=== PATIENT | male | born 1980 | race Caucasian/White ===

== ENCOUNTER 2018-09-28 12:59 | Emergency (ER) | payer MEDICAID, SELFPAY ==
[2018-09-28 13:00] VITALS: BP 147/68; PULSE 87; RESP 16; TEMP 36.8; O2SAT 99; BMI 23.7
--- NOTE | 2018-09-28 13:29 | RAD_ITS ---
STUDY: X-RAY - MANDIBLE (COMPLETE) REASON FOR EXAM: Male, 38 years old. Pain along the right side of the mandible. No history of trauma. TECHNIQUE: 5 view(s) of the mandible were obtained. COMPARISON: None. FINDINGS: Normal mandible. Normal visualized right temporomandibular joint. Normal visualized left temporomandibular joint. The remaining visualized osseous structures are normal. The soft tissue structures are unremarkable. RAD/Mandible Min 4 Views IMPRESSION: Normal x-ray examination of the mandible. Electronically Signed: Gordon Lazaro, at 14:40 EDT , Service support ,
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
--- NOTE | 2018-09-28 15:19 | ED.DEP ---
ED Disposition - Plan for ED Patient: Disposition: Home or Assisted Living Instructions: ED TMJ Syndrome Prescriptions: Naproxen [Naprosyn] 500 mg PO BID PRN PRN #20 tablet PRN Reason: Pain Cyclobenzaprine [Flexeril] 10 mg PO TID PRN #20 tablet PRN Reason: Muscle Spasm Referrals: Gómez Mason DDS [STAFF PHYSICIAN] - 10-14 Days if not better
[2018-09-28] MEDS: Naproxen 500 MG Tablet PO (15:27)
[2018-09-28] MEDS: HYDROcodone Bitartrate/Apap 5/325 Tablet PO (15:27)
== END 2018-09-28 15:28 | disposition home or self-care (01) ==
PROVIDERS: Emergency Provider Emergency Medicine; Family Provider Family Medicine; PCP Family Medicine
DX: M26.621 Arthralgia of right temporomandibular joint (principal)
CPT/HCPCS: 70110; 99283

== ENCOUNTER 2023-03-13 09:08 | Emergency (ER) | payer MEDICAID, SELFPAY ==
[2023-03-13 09:09] VITALS: BP 142/84; PULSE 75; RESP 16; TEMP 36.3; O2SAT 100; BMI 24.3
--- NOTE | 2023-03-13 09:22 | CT_ITS ---
STUDY: CT SOFT TISSUE NECK WITH CONTRAST REASON FOR EXAM: Male, 42 years old. Right parapharyngeal pain RADIATION DOSAGE (If Supplied By Facility): CTDIvol = ( 15.35 ) mGy, DLP = ( 490.80 ) mGycm TECHNIQUE: The patient was scanned in a multi-detector CT scanner. High resolution transaxial imaging was performed following intravenous administration of IV 100mL Isovue-370. Sagittal and coronal images were reconstructed. Individualized dose optimization techniques were used for this CT. COMPARISON: None. FINDINGS: Normal bilateral parotid glands. Normal bilateral drug and alcohol counsellor spaces. Normal bilateral parapharyngeal spaces. Normal bilateral carotid spaces. Normal bilateral sublingual and submandibular glands and spaces. Normal visualized nasopharynx. Normal retropharyngeal space. Normal perivertebral space. Asymmetric soft tissue attenuation and possible 2 cm mass in the right side of the oropharynx and/or right lingual tonsil and clinical correlation is recommended. The visualized cervical lymph nodes (levels I-) are within normal size limits, and maintain normal morphology. There is no demonstrated solid or cystic mass lesion. There is no abnormal contrast enhancement. Normal epiglottis, bilateral vallecula and hypopharynx. The pre-epiglottic and paraglottic adipose spaces are normal. Normal visualized bilateral piriform sinuses, aryepiglottic folds, vocal cords, and arytenoid-cricoid articulations. Normal subglottic trachea. Normal bilateral lobes of the thyroid gland. Normal visualized pulmonary apices. Normal visualized paranasal sinuses. Normal visualized cervical spine. CT/Soft Tissue Neck WITH Contrast IMPRESSION: Asymmetry or mass of the right side of the oropharynx and possibly lingual tonsil and clinical correlation is recommended. Electronically Signed: Feroz De La Garza MD at 10:36 EDT ,
--- NOTE | 2023-03-13 09:25 | EDS_ITS ---
HPI History of Present Illness Chief Complaint: Sore Throat Informant: patient Narrative Narrative: Presents with right-sided sore throat. Patient is overall healthy. He states yesterday morning started to get a sore throat. Its really mostly on the right side. He states he is just getting more and more sore. It is hurting to swallow. He is still able to swallow and handle secretions. He is not short of breath. No change in his voice. He does not think he has had a fever. There is no trauma to the area. No weight loss or weight gain. No earache. No facial pain or congestion. No dental pain. Does not hurt opening closing the jaw. This does not appear to be TMJ. Nothing specifically makes this better or worse. He has not had this before. PFSH PFSH Home Medications multivitamin (Daily Multiple tablet) 1 ea PO DAILY 11/21/15 [History Last Taken Unknown] amoxicillin 500 mg tablet 500 mg PO TID #30 tabs 03/13/23 [Rx Last Taken Unknown] hydrocodone-acetaminophen 5-325mg 5mg-325mg 1 tab PO Q6H PRN PRN Pain 3 days #10 TABLETS 03/13/23 [Rx Last Taken Unknown] Allergy/AdvReac Type Severity Reaction Status Date / Time No Known Allergies Allergy Verified 03/13/23 09:09 Social History Smoking Status: Current every day smoker tobacco type: cigarettes ROS ROS ED Constitutional Constitutional ED: Denies chills or fever(s) Eyes Eyes: Denies change in vision or diplopia ENT ENT ED: Reports sore throat; Denies ear pain or rhinorrhea Cardiovascular Cardiovascular: Denies chest pain Respiratory/Chest Respiratory/Chest: Denies cough or dyspnea Gastrointestinal Gastrointestinal: Denies nausea or vomiting Musculoskeletal Musculoskeletal: Denies neck pain Integumentary Denies abscess, Abrasions or rash Neurologic Neurologic: Denies headache(s), paresthesias or weakness Endocrine Endocrinology: Denies polydipsia or polyuria Hematologic/Lymphatic Hematologic/Lymphatic: Denies anemia or easy bleeding Allergic/Immunologic Allergic/Immunologic ED: Denies urticaria EXAM Physical Exam Narrative Exam Narrative: Patient is awake alert sitting comfortably in the bed. No acute distress. He carries on normal conversation. HEENT: He has a small os mobile growth anterior to the right ear. But he has had that for 7 or 8 years unchanged. Tympanic membranes are clear. No TMJ tenderness on exam. No sinus tenderness. Nasal passages are clear. Oropharynx does show some erythema on the right. The tonsil on the right looks just slightly larger than the left. But is nowhere near midline at all. It is a very subtle difference. No exudate is seen on the portion of the tonsil that I can visualize. No thrush. Voice and handling secretions are normal. No dental tenderness noted. Neck shows no lymphadenopathy or fullness that I can appreciate. There is no asymmetry. Lungs are clear bilaterally. Heart is regular. No murmur. Peripheral pulses are normal. Abdomen is soft completely nontender. No hepatosplenomegaly noted. Extremities show no rash or swelling. Const Vital Signs: 03/13/23 09:09 Temperature 97.3 F L Temperature Source Temporal Pulse Rate 75 Respiratory Rate 16 Blood Pressure 142/84 H Blood Pressure Mean 103 Pulse Ox 100 Oxygen Delivery Method Room Air MDM MDM MDM Narrative Medical decision making narrative: Patient CBC is normal including white count hemoglobin and platelets. Patient's electrolytes show no marked abnormalities. Patient's glucose is minimally elevated which is nonspecific. My independent interpretation is CT of the throat does not show an abscess but it does show some fullness in the area of discomfort. Final reading shows, Asymmetry or mass of the right side of the oropharynx and possibly lingual tonsil and clinical correlation is recommended. It is unclear if this could be a mass. Infectious is a possibility. I be surprised in a mass coming up quickly. He has had no trauma. He was perfectly fine until yesterday morning. With the sudden onset of soreness. I will treat this with antibiotics. I will give a single dose of Decadron. But I explained to the patient that this needs close follow-up. Even if his symptoms fully resolve he needs to follow-up with ENT. They may want to do a further imaging or scope to look at the area. But we cannot rule out a cancer even though it would be surprising to become not symptomatic that fast. He does occasionally smoke but not a regular smoker and does not dip or chew tobacco. No weight loss. Lab Data Attestation: I reviewed the patient's lab results. Labs: Laboratory Results - last 24 hr 03/13/23 09:30 WBC 10.5 RBC 5.05 Hgb 14.4 Hct 43.2 MCV 85.5 MCH 28.5 MCHC 33.3 RDW Std Deviation 39.9 RDW Coeff of Jessica 13.1 Plt Count 286 MPV 8.9 Immature Gran % (Auto) 0.400 Neut % (Auto) 77.7 H Lymph % (Auto) 15.0 L [place] % (Auto) 5.9 Eos % (Auto) 0.8 Baso % (Auto) 0.2 Absolute Neuts (auto) 8.2 H Absolute Lymphs (auto) 1.57 Nucleated RBC % 0 Sodium 136 Potassium 4.2 Chloride 107 Carbon Dioxide 27.0 Anion Gap 2 L BUN 12 Creatinine 0.94 Estim Creat Clear Calc 109.03 Est GFR (MDRD) Af Amer 113 Est GFR (MDRD) Non-Af 93 BUN/Creatinine Ratio 12.8 Glucose 114 H Calcium 8.7 Radiography Diagnostic Testing: Clinical Impression(s) from Imaging Studies Soft Tissue Neck CT 03/13/23 09:22 IMPRESSION: Asymmetry or mass of the right side of the oropharynx and possibly lingual tonsil and clinical correlation is recommended. Electronically Signed: Feroz De La Garza MD at 10:36 EDT , Discharge Plan Triage Chief Complaint: Sore Throat ED Provider: Jerry Jade Dx/Rx/DC Orders Clinical Impression: Oropharyngeal mass, Pharyngitis Instructions: ED Pharyngitis, Report Pending Prescriptions: New hydrocodone-acetaminophen [hydrocodone-acetaminophen] 5-325 mg tablet 1 tab PO Q6H PRN PRN (Reason: Pain) 3 Days Qty: 10 0RF amoxicillin 500 mg tablet 500 mg PO TID Qty: 30 0RF No Action multivitamin [Daily Multiple] 1 EACH tablet 1 ea PO DAILY Primary Care Provider: Sandeep Lezama Referrals: Sandeep Lezama MD [Primary Care Provider] - Lucho Capps MD [Med Staff - Active Staff] - As soon as possible (Call on Tuesday to be seen this week. Even if your symptoms resolve you need to have follow-up evaluation.) Disposition Disposition: Home, Self Care
[2023-03-13 09:35] LABS: Absolute Lymphocyte Count 1.57 X10^3/uL (0.83-4.51); Absolute Neutrophil Count 8.2 X10^3/uL (2.0-7.7); Basophil# 0.02 X10^3/uL; Basophil% 0.2 % (0-1); Eosinophil# 0.08 X10^3/uL; Eosinophils% 0.8 % (0-5); Hematocrit 43.2 % (40-54); Hemoglobin 14.4 g/dL (13.0-16.5); Lymphocyte # 1.57 X10^3/ul (0.83-4.51); Mean Corp Hgb Conc 33.3 g/dL (32-36); Mean Corpuscular Hgb 28.5 pg (27.0-32.0); Mean Corpuscular Volume 85.5 fL (80-94); Mean Platelet Vol. 8.9 fl (6.2-12.0); Monocyte# 0.62 X10^3/uL; Monocyte% 5.9 % (0-10); NRBC Flagged by Analyzer 0 % (0-5); Neutrophil # 8.15 X10^3/uL (2.7-7.7); Neutrophil % 77.7 % (47-70); Platelet Count 286 K/mm3 (150-450); RBC Distribution Width CV 13.1 % (11.6-14.6); RBC Distribution Width SD 39.9 fl (35.1-43.9); Red Blood Count 5.05 M/mm3 (4.6-6.2); White Blood Count 10.5 K/mm3 (4.4-11.0)
[2023-03-13 09:51] LABS: Anion Gap 2 (5-15); BUN 12 mg/dL (7-18); BUN/Creat Ratio 12.8 RATIO (10-20); Calcium,Total 8.7 mg/dL (8.5-10.1); Chloride 107 mmol/L (98-107); Creatinine, Serum 0.94 mg/dL (0.70-1.30); EST Glomerular Filtration Rate 93 mL/min (>60); Est Glom Filt Rate - Afr Amer 113 mL/min (>60); Estimated Creatinine Clearance 109.03 ml/min; Glucose 114 mg/dL (74-106); Potassium 4.2 mmol/L (3.5-5.1); Sodium Level 136 mmol/L (136-145)
[2023-03-13 11:17] VITALS: BP 127/69; PULSE 84; RESP 16; O2SAT 97
== END 2023-03-13 11:18 | disposition home or self-care (01) ==
PROVIDERS: Emergency Provider Emergency Medicine; PCP Family Medicine; Visit Provider Emergency Medicine
DX: J02.9 Acute pharyngitis, unspecified (principal); F17.210 Nicotine dependence, cigarettes, uncomplicated
CPT/HCPCS: 70491; 80048; 85025; 99283; Q9967; A4216

== ENCOUNTER 2023-03-16 10:33 | Emergency (ER) | payer MEDICAID, SELFPAY ==
[2023-03-16 10:33] VITALS: BP 128/82; PULSE 80; RESP 18; TEMP 36.6; O2SAT 100; BMI 23.3
--- NOTE | 2023-03-16 10:49 | CT_ITS ---
STUDY: CT SOFT TISSUE NECK WITH CONTRAST REASON FOR EXAM: Male, 42 years old. Difficulty swallowing RADIATION DOSAGE (If Supplied By Facility): CTDIvol = ( 15.79 ) mGy, DLP = ( 564.22 ) mGycm TECHNIQUE: The patient was scanned in a multi-detector CT scanner. High resolution transaxial imaging was performed following intravenous administration of IV 75mL Isovue-370. Sagittal and coronal images were reconstructed. Individualized dose optimization techniques were used for this CT. COMPARISON: 03/13/2023 FINDINGS: The previously described heterogeneously enhancing asymmetric area at the base of the right tongue has become more conspicuous and organized when compared to the previous study. There is now a measurable 2.15 x 1.25 cm low-density collection consistent with abscess which is impinging upon the oropharynx and displacing it to the left. This is best seen on axial images 81 through 89. Direct visualization is recommended for further evaluation. There is some disruption of the nearby fat planes and there is no suspicious adenopathy. Normal bilateral parotid glands. Normal bilateral lorry weigher spaces. Normal bilateral parapharyngeal spaces. Normal bilateral carotid spaces. Normal bilateral sublingual and submandibular glands and spaces. Normal visualized nasopharynx. Normal retropharyngeal space. Normal perivertebral space. Normal visualized bilateral faucial tonsils. The visualized tongue, tongue base and oropharynx are normal. The visualized cervical lymph nodes (levels I-) are within normal size limits, and maintain normal morphology. There is no demonstrated solid or cystic mass lesion. There is no abnormal contrast enhancement. Normal epiglottis, bilateral vallecula and hypopharynx. The pre-epiglottic and paraglottic adipose spaces are normal. Normal visualized bilateral piriform sinuses, aryepiglottic folds, vocal cords, and arytenoid-cricoid articulations. Normal subglottic trachea. Normal bilateral lobes of the thyroid gland. Normal visualized pulmonary apices. Normal visualized paranasal sinuses. Normal visualized cervical spine. CT/Soft Tissue Neck WITH Contrast IMPRESSION: More conspicuous fluid collection and heterogeneously enhancing fluid collection at the base of the right tongue system with abscess. There is some associated disruption of the nearby fat planes but no associated adenopathy. The fluid collection measures approximately 2.15 x 1.25 cm. Further evaluation with direct visualization Electronically Signed: Kiran Rogers MD at 12:17 EDT ,
[2023-03-16 11:11] LABS: Absolute Lymphocyte Count 1.63 X10^3/uL (0.83-4.51); Absolute Neutrophil Count 7.2 X10^3/uL (2.0-7.7); Basophil# 0.03 X10^3/uL; Basophil% 0.3 % (0-1); Eosinophil# 0.07 X10^3/uL; Eosinophils% 0.7 % (0-5); Hematocrit 45.7 % (40-54); Lymphocyte # 1.63 X10^3/ul (0.83-4.51); Lymphocyte % 16.8 % (19-41); Mean Corp Hgb Conc 32.8 g/dL (32-36); Mean Corpuscular Hgb 28.4 pg (27.0-32.0); Mean Corpuscular Volume 86.4 fL (80-94); Mean Platelet Vol. 9.1 fl (6.2-12.0); Monocyte# 0.72 X10^3/uL; Monocyte% 7.4 % (0-10); NRBC Flagged by Analyzer 0 % (0-5); Neutrophil % 74.5 % (47-70); Platelet Count 315 K/mm3 (150-450); RBC Distribution Width CV 12.5 % (11.6-14.6); RBC Distribution Width SD 39.4 fl (35.1-43.9); Red Blood Count 5.29 M/mm3 (4.6-6.2); White Blood Count 9.7 K/mm3 (4.4-11.0)
[2023-03-16] MEDS: Ketorolac 15 MG/ML Vial IM (11:17)
[2023-03-16] MEDS: dexAMETHasone 10 MG/ML Vial IV (11:17)
[2023-03-16 11:30] LABS: AST(SGOT) 21 U/L (15-37); Alanine Aminotransfer ALT/SGPT 38 U/L (16-61); Albumin, Serum 4.3 g/dL (3.2-5.0); Alkaline Phosphatase 126 U/L (45-117); Anion Gap 3 (5-15); BUN 13 mg/dL (7-18); BUN/Creat Ratio 13.1 RATIO (10-20); Calcium,Total 9.5 mg/dL (8.5-10.1); Chloride 102 mmol/L (98-107); Creatinine, Serum 0.99 mg/dL (0.70-1.30); EST Glomerular Filtration Rate 88 mL/min (>60); Est Glom Filt Rate - Afr Amer 106 mL/min (>60); Estimated Creatinine Clearance 103.53 ml/min; Globulin 4.3 g/dL (2.2-4.2); Glucose 109 mg/dL (74-106); Potassium 4.3 mmol/L (3.5-5.1); Protein, Total 8.6 g/dL (6.4-8.2); Sodium Level 135 mmol/L (136-145)
--- NOTE | 2023-03-16 11:31 | ED.VIS.DYS ---
HPI History of Present Illness Chief Complaint: Shortness of Breath Narrative Narrative: Patient with right-sided sore throat and mass. He had CT done a few days ago which shows slight mass in the throat. This was a fairly cute onset. Patient states he feels like the pain is getting worse. He states has been on [facility] and amoxicillin. Patient denies any fever or chills. Patient denies nausea or vomiting. He is able to tolerate his own secretions. He have difficulty breathing because of his sore throat he was post to follow-up with ENT today but they did not have an appointment and states they can get him in tomorrow. They stated to him if his pain was worse or anything was wrong to come to the ER. PFSH PFSH Medical History no medical history Home Medications multivitamin (Daily Multiple tablet) 1 ea PO DAILY 11/21/15 [History Last Taken Unknown] amoxicillin 500 mg tablet 500 mg PO TID #30 tabs 03/13/23 [Rx Last Taken Unknown] hydrocodone-acetaminophen 5-325mg 5mg-325mg 1 tab PO Q6H PRN PRN Pain 3 days #10 TABLETS 03/13/23 [Rx Last Taken Unknown] amoxicillin 875 mg-potassium clavulanate 125 mg tablet 1 tab PO BID #20 tabs 03/16/23 [Rx Last Taken Unknown] oxycodone 5 mg tablet 5 mg PO Q6H PRN pain 3 days #12 tabs 03/16/23 [Rx Last Taken Unknown] Allergy/AdvReac Type Severity Reaction Status Date / Time No Known Allergies Allergy Verified 03/16/23 10:33 Surgical History no surgical history Social History Smoking Status: Current every day smoker tobacco type: cigarettes ROS ROS ED Constitutional Constitutional ED: Denies chills, fever(s) or sweats Eyes Eyes: Denies blurry vision or change in vision ENT ENT ED: Reports sore throat and other Details: Throat swelling ; Denies ear pain Cardiovascular Cardiovascular: Denies chest pain, palpitations or racing heartbeat Respiratory/Chest Respiratory/Chest: Reports dyspnea; Denies cough or sputum Gastrointestinal Gastrointestinal: Denies abdominal pain, constipation, diarrhea, nausea or vomiting Genitourinary Genitourinary ED: Denies dysuria, hematuria or urinary frequency Musculoskeletal Musculoskeletal: Denies arthralgias, myalgias or neck pain Integumentary Denies abscess, Abrasions or rash Neurologic Neurologic: Denies headache(s), paresthesias or weakness Psychiatric Psychiatric: Denies anxiety, depression, suicidal ideation or suicidal thoughts Endocrine Endocrinology: Denies polydipsia or polyuria EXAM Physical Exam Const Vital Signs: 03/16/23 10:33 Temperature 97.9 F Temperature Source Temporal Pulse Rate 80 Respiratory Rate 18 Blood Pressure 128/82 H Blood Pressure Mean 97 Pulse Ox 100 Oxygen Delivery Method Room Air Positive well nourished General Appearance ED: NAD HEENT Reports moist mucous membranes Face and Sinus: normal facial exam Nose: external nose normal and nares normal Mouth ED: Yes oral and palatal mucosa normal, Yes lips normal, Yes tongue normal, Yes salivary gland normal and Yes moist mucous membranes normal Mouth: oral and palatal mucosa normal, lips normal, tongue normal and salivary gland normal Throat: posterior oropharynx abnormal Positive for edema (Right-sided) and erythema (Right-sided); Negative for exudates; Negative for hoarseness Eyes PERRL Neck Neck Narrative: Right sided lymphadenopathy. No stridor Resp normal respiratory effort and clear to auscultation bilaterally Auscultation: Negative for rales, rhonchi or wheezes Cardio regular rate and regular rhythm MDM MDM MDM Narrative Medical decision making narrative: Patient diagnosed with throat mass few days ago. He has been on Kaiser and amoxicillin without any improvement. Differential includes tonsillar abscess, peritonsillar abscess, retropharyngeal abscess, strep pharyngitis, mass. CBC was obtained to assess white blood cell count, hemoglobin, platelets. CMP to assess liver function, renal function, electrolytes. Patient medicated with dexamethasone and Toradol. CT soft tissue neck will be obtained to compare. CBC and BMP are unremarkable. Patient medicated with Toradol and dexamethasone. CT soft tissue neck shows developing peritonsillar abscess. I reviewed this with Dr. Barrios. The radiologist did this at the base of the tongue system but Dr. Barrios disagrees. Did not to receive the dose of Unasyn here in the ED. He will be given oxycodone for pain at home. He is to follow-up tomorrow at 8 AM in office with Dr. Barrios. Rapid strep was negative today. Patient to be n.p.o. after midnight and this was discussed at length. Antibiotics will be switched to Augmentin. Impression 1. Peritonsillar abscess Lab Data Attestation: I reviewed the patient's lab results. Labs: Laboratory Results - last 24 hr 03/16/23 11:05 WBC 9.7 RBC 5.29 Hgb 15.0 Hct 45.7 MCV 86.4 MCH 28.4 MCHC 32.8 RDW Std Deviation 39.4 RDW Coeff of Jessica 12.5 Plt Count 315 MPV 9.1 Immature Gran % (Auto) 0.300 Neut % (Auto) 74.5 H Lymph % (Auto) 16.8 L [place] % (Auto) 7.4 Eos % (Auto) 0.7 Baso % (Auto) 0.3 Absolute Neuts (auto) 7.2 Absolute Lymphs (auto) 1.63 Nucleated RBC % 0 Sodium 135 L Potassium 4.3 Chloride 102 Carbon Dioxide 30.0 Anion Gap 3 L BUN 13 Creatinine 0.99 Estim Creat Clear Calc 103.53 Est GFR (MDRD) Af Amer 106 Est GFR (MDRD) Non-Af 88 BUN/Creatinine Ratio 13.1 Glucose 109 H Calcium 9.5 Total Bilirubin 1.30 H AST 21 ALT 38 Alkaline Phosphatase 126 H Total Protein 8.6 H Albumin 4.3 Globulin 4.3 H Albumin/Globulin Ratio 1.0 Radiography Diagnostic Testing: Clinical Impression(s) from Imaging Studies Soft Tissue Neck CT 03/16/23 10:49 IMPRESSION: More conspicuous fluid collection and heterogeneously enhancing fluid collection at the base of the right tongue system with abscess. There is some associated disruption of the nearby fat planes but no associated adenopathy. The fluid collection measures approximately 2.15 x 1.25 cm. Further evaluation with direct visualization Electronically Signed: Kiran Rogers MD at 12:17 EDT , Discharge Plan Triage Chief Complaint: Shortness of Breath ED Provider: Gilmer De Los Santos Dx/Rx/DC Orders Clinical Impression: Abscess, peritonsillar Instructions: ED Peritonsillar Abscess Prescriptions: New amoxicillin-pot clavulanate 875-125 mg tablet 1 tab PO BID Qty: 20 0RF oxycodone 5 mg tablet 5 mg PO Q6H PRN (Reason: pain) 3 Days Qty: 12 0RF No Action multivitamin [Daily Multiple] 1 EACH tablet 1 ea PO DAILY hydrocodone-acetaminophen [hydrocodone-acetaminophen] 5-325 mg tablet 1 tab PO Q6H PRN PRN (Reason: Pain) 3 Days Qty: 10 0RF amoxicillin 500 mg tablet 500 mg PO TID Qty: 30 0RF Primary Care Provider: Sandeep Lezama Referrals: Zac Arana MD [Med Staff - Active Staff] - 1 Day (At the office at 8 AM. N.p.o. after midnight as we discussed) Sandeep Lezama MD [Primary Care Provider] - Disposition Disposition: Home, Self Care
[2023-03-16] MEDS: Ampicillin/Sulbactam 3 GM in 0.9% Normal Saline (100mL MB+) 100 ML IV (13:58)
== END 2023-03-16 14:25 | disposition home or self-care (01) ==
PROVIDERS: Emergency Provider Student in an Organized Health Care Education/Training Program; PCP Family Medicine; Visit Provider Student in an Organized Health Care Education/Training Program
DX: J36 Peritonsillar abscess (principal); F17.210 Nicotine dependence, cigarettes, uncomplicated
CPT/HCPCS: 70491; 80053; 85025; 87880; 96365; 96372; 96375; 99284; Q9967; A4216; J0295